=== PATIENT | female | born 1940 | race Hispanic/Latino ===

== ENCOUNTER 2024-03-17 16:10 | Emergency (ER) | payer SELFPAY ==
[2024-03-17 16:17] VITALS: BP 174/73
--- NOTE | 2024-03-17 16:55 | ED.GENMED ---
History of Present Illness
<CHELSEY Plata - Last Filed: 03/17/24 23:18>
General
Chief Complaint: Abdominal Pain
Source: patient
Exam Limitations: none
Time Seen by Provider: 03/17/24 16:51
Nursing documentation reviewed up to this point in time: agreed with
Travel History
Have you had any contact with someone who has COVID-19?: No
Do you have any symptoms of coronavirus? Fever > 100 degrees, chills, cough, shortness of breath, sore throat, loss of taste or smell, muscle aches, or headache?: No
History of Present Illness
History of Present Illness:
83 yr old female brought by daughter for evaluation. Daughter reports patient lives with her and has had intermittent dizziness for months however on Thursday she had an episode that was worse than normal. She has also had some intermittent
abdominal pain since Thursday. She started with gas and reports symptoms have gotten worse since. She denies any fever or chills. Daughter reports she has a history of high cholesterol and very elevated triglycerides in the 500s however that has
not been treated. She only took a statin for 30 days and she has not had medication for this in over a year. Daughter took patient to a new family doctor here in [place] as she lives both in [place] and [place]. The new family doctor
today was concerned about vertigo and possible stroke and also wanted her sent to the ER for pancreatitis workup with elevated triglycerides and abdominal pain. Patient has previous history of appendectomy and cholecystectomy.
Phy Exam
<CHELSEY Plata - Last Filed: 03/17/24 23:18>
General Physical Exam
General Presentation: no apparent distress
General age: appears stated age
General Skin: warm and dry
General Habitus: normal
General Mental: alert
General Hydration: appears well hydrated
Eye Exam
Eye Exam: PERRL and EOMI
Eye Exam General: PERRL: bilateral and EOM intact: bilateral
Pupil Exam: Bilateral: round and reactive
Cardiovascular Exam
Cardiovascular Exam: irregularly irregular
Pulmonary Exam
Pulmonary Exam: lungs clear and no respiratory distress
Gastrointestinal Exam
Gastrointestinal Exam: soft and other (Nonspecific mild tenderness to abdomen )
Neurological Exam
Neurological Exam: alert and oriented x3
[place] Coma Scale
Eye Opening: Spontaneous
Verbal Response: Oriented
Motor Response: Obeys Commands
GCS Total Score: 15
Musculoskeletal Exam
Musculoskeletal Exam: full ROM
Skin Exam
Skin Exam: normal color and warm/dry
Psychiatric Exam
Psychiatric Exam: normal mood/affect
<Alexis Bellamy MD - Last Filed: 03/17/24 21:22>
[place] Coma Scale
GCS Total Score: 15
Course
<CHELSEY Plata - Last Filed: 03/17/24 23:18>
Orders/Labs/Results
Orders:
Orders
03/17/24 17:15
CT Head W/o Iv Contrast Urgent
Comment:
Reason For Exam: vertigo
Urinalysis Reflex To Culture Urgent
Date Specimen was Collected: 03/17/24
Time Specimen was Collected: 22:57
03/17/24 17:17
Iohexol [Omnipaque] See Protocol PO NOW STA
03/17/24 17:32
Electrocardiogram (*1) Stat
Reason for Study: Other
Other Reason for Exam: chest pain
EKG- Treatment ONCE
03/17/24 19:35
Complete Blood Count/With Diff Urgent
Comprehensive Metabolic Panel Urgent
Lipase Urgent
03/17/24 21:28
US Abdomen Complete/Upper Urgent
Comment:
Reason For Exam: abd pain
03/17/24 21:30
Aspirin 325 mg PO NOW STA
Abnormal Lab Results
03/17/24
19:35
Hgb 16.4 H g/dL
(12.0-16.0)
MCH 32.3 H pg
(27.0-31.0)
Creatinine 0.5 L mg/dL
(0.6-1.0)
Glucose 106 H mg/dl
(70-99)
AST 53 H U/L
(14-36)
ALT 56 H U/L
(0-35)
Total Protein 8.6 H g/dl
(6.3-8.2)
03/17/24 19:35
03/17/24 19:35
Vital Signs
Initial and Last Documented VS:
Initial Vital Signs
Temp Pulse Resp BP Pulse Ox
98.2 F 60 16 174/73 99
03/17/24 16:17 03/17/24 16:17 03/17/24 16:17 03/17/24 16:17 03/17/24 16:17
Last Documented Vital Signs
Temp Pulse Resp BP Pulse Ox
98.2 F 60 16 138/66 99
03/17/24 16:17 03/17/24 16:17 03/17/24 16:17 03/17/24 20:55 03/17/24 19:09
Metrology Specialist consulted with Physician
Metrology Specialist consulted with physician?: Yes
Name of Physician Consulted: Mia
<Alexis Bellamy MD - Last Filed: 03/17/24 21:22>
Orders/Labs/Results
Orders:
Orders
03/17/24 17:15
CT Head W/o Iv Contrast Urgent
Comment:
Reason For Exam: vertigo
Urinalysis Reflex To Culture Urgent
Date Specimen was Collected: 03/17/24
Time Specimen was Collected: 22:57
03/17/24 17:17
Iohexol [Omnipaque] See Protocol PO NOW STA
03/17/24 17:32
Electrocardiogram (*1) Stat
Reason for Study: Other
Other Reason for Exam: chest pain
EKG- Treatment ONCE
03/17/24 19:35
Complete Blood Count/With Diff Urgent
Comprehensive Metabolic Panel Urgent
Lipase Urgent
03/17/24 21:28
US Abdomen Complete/Upper Urgent
Comment:
Reason For Exam: abd pain
03/17/24 21:30
Aspirin 325 mg PO NOW STA
Abnormal Lab Results
03/17/24
19:35
Hgb 16.4 H g/dL
(12.0-16.0)
MCH 32.3 H pg
(27.0-31.0)
Creatinine 0.5 L mg/dL
(0.6-1.0)
Glucose 106 H mg/dl
(70-99)
AST 53 H U/L
(14-36)
ALT 56 H U/L
(0-35)
Total Protein 8.6 H g/dl
(6.3-8.2)
03/17/24 19:35
03/17/24 19:35
Vital Signs
Initial and Last Documented VS:
Initial Vital Signs
Temp Pulse Resp BP Pulse Ox
98.2 F 60 16 174/73 99
03/17/24 16:17 03/17/24 16:17 03/17/24 16:17 03/17/24 16:17 03/17/24 16:17
Last Documented Vital Signs
Temp Pulse Resp BP Pulse Ox
98.2 F 60 16 138/66 99
03/17/24 16:17 03/17/24 16:17 03/17/24 16:17 03/17/24 20:55 03/17/24 19:09
<CHELSEY Plata - Last Filed: 03/17/24 23:18>
MDM/Problems Addressed
Differential Diagnosis Includes:
not limited to: CVA , vertigo,
MDM/Problems Addressed:
Patient is an 83-year-old female with a history of A-fib on Eliquis who was seen by new family provider today and sent to the ER for evaluation. She presented for an episode of severe dizziness on Thursday and has had some abdominal discomfort since.
Her family provider saw for the first time today and was concerned for possible stroke and also possible pancreatitis as patient has history of elevated triglycerides not treated.
Patient presents here no acute distress she is on Eliquis describes vertigo but several days ago but no nystagmus negative [place]-Hallpike. Patient was eval by DR Bellamy, CAT scan negative. pt allergic to ASA . but will adm for cva work up . Pt
in addition with non specific abd pain, allergic to contrast. will check US however nm llipase, nml wbc .
2300: Regarding patient's dizziness with no nystagmus negative [place]-Hallpike and high risk of stroke with elevated untreated high cholesterol was recommended to patient by attending and myself admission for stroke workup however patient declined.
Attempted multiple times to reiterate the importance of the seriousness of this however patient remains wanting to sign out against medical vice. I did however do an ultrasound showed mild increased hepatic parenchymal coarsening with nonspecific
and this will need future workup. I spoke with daughter regarding the importance of close outpatient follow-up family doctor for further workup for dizziness, outpatient neurology follow-up and for patient to take her cholesterol medicine as
recommended. In addition she will need outpatient GI follow-up
<CHELSEY Plata - Last Filed: 03/17/24 23:18>
*Critical Care Note
Total Time (30-74mins, 75-104mins- exclusive of procedures): Not Applicable
ED Attending Note
<CHELSEY Plata - Last Filed: 03/17/24 23:18>
-
Portions of this chart may have been created with voice recognition software.� Occasional wrong word or��sound alike� substitutions may have occurred due to the inherent limitations of voice recognition software.
<Alexis Bellamy MD - Last Filed: 03/17/24 21:22>
ED Attending Note
Patient seen and examined by attending physician: Yes
ED Attending Note:
I have seen and evaluated the patient with a [id number]-mc-zucb encounter. I have spoken to the advance practicer provider and involved in the medical history, the physical exam, medical decision making.
Evaluation and management service: agree unless noted differently below.
Results interpretation: agree unless noted differently below.
Focused HPI: 83-year-old female with history as documented notable for A-fib on Eliquis and hypertension who presents to the emergency room with her daughter for evaluation of dizziness. Triage note mentions abdominal pain but this is actually not
patient's primary complaint�patient apparently had an episode of 'gas' on Thursday evening that lasted for short period and did not return. Her primary reason for being here in the emergency room is because her primary provider referred her to rule
out a stroke due to consistent dizziness for the past few days. Patient typically lives in [place] but comes to this area for about 3 months of the year to stay with her daughter. They scheduled an appointment today to see a primary provider in
this area so that she could have someone to see if she is ill while she is staying in the region. They mention that the appointment today that the patient has been dizzy for the past 4 days or so. Patient apparently woke up Thursday morning with
severe rooms. Apparently was so severe that she was reticent to walk around. Thursday and Thursday symptoms seem to improved but were still present, today symptoms were greatly improved to the point that she could even walk down the stairs
unassisted but she still has some slight residual dizziness. They went to her appointment today and apparently there there were concerning signs on exam for stroke and they were told that they should go to the emergency room. Patient has not had
any nausea or vomiting. She has not had any URI symptoms. She denies any headache or neck pain. She denies any focal weakness, numbness, tingling in her extremities. She denies any speech changes. No facial drooping. Denies any other
complaints.
Physical exam: Awake alert, anxious but not in distress. Hypertensive but otherwise normal vitals. She has no cardiac rubs gallops or murmurs, normal rate but irregular rhythm on cardiac auscultation. Her lungs are clear to auscultation
bilaterally. Her abdomen is soft and nontender to deep palpation. Extraocular movements are intact without nystagmus. She has a negative [place]-Hallpike. Her pupils are equal round and reactive to light bilaterally. She has no cranial nerve
deficits. She has no limb ataxia. Motor and sensory function is intact and symmetric upper and lower extremities.
Medical Decision Makin-year-old female presents for evaluation of dizziness for the past few days which is generally improving. Sent into the emergency room by primary to be evaluated for stroke�there was concern because she has a negative
Alysha-Hallpike and no reproducible nystagmus, consistent dizziness and a history of A-fib with other stroke risk factors. Vitals and exam as above. IV placed labs sent off including CBC and CMP. Will send for CT head. Check an EKG. Will monitor
closely reassess after the above.
Labs reviewed: CBC unremarkable, CMP shows marginal elevation of LFTs unlikely of clinical significance to her presenting complaint today. CT head showed no acute pathology. EKG shows A-fib with normal rate. Had a long discussion with the patient
and the daughter. Concerned with lack of reproducible nystagmus and negative [place]-Hallpike that this could be central vertigo, will admit for neurology consultation and consideration of MRI. Patient is agreeable. She says that while she is
admitted she is hoping to get an abdominal ultrasound because she has been having occasional postprandial abdominal pains although again she has no abdominal pain at present. She is already status post appendectomy and cholecystectomy and has no
abdominal tenderness at present but she did have abnormal LFTs�will send for an upper abdominal ultrasound as well.
Discharge Plan
Departure
Patient Disposition: Against Medical Advice
Date of Disposition: 03/17/24
Time of Disposition: 23:10
Patient with high blood pressure during this ER visit?: Yes
Condition: Fair
Covid-19: Not Applicable
Discharge Problem:
Dizziness, Abdominal pain
Instructions: Dizziness, Abdominal Pain
Referrals:
Ambrosio Kurtz MD [Active] -
James Guidry MD [Active] -
UNKNOWN - PT DOES,NOT KNOW [Family Provider] -
Activity Restrictions/Additional Instructions:
As discussed you are recommended to be admitted to the hospital for further evaluation of dizziness for a stroke workup along with abdominal pain but you declined.
Follow-up closely with your family doctor for further reevaluation of these medical conditions. You are also given information for follow-up with GI for further findings on your ultrasound as well as for neurology. Return if any worsening of
symptoms.
Please continue to take all of your medications including your cholesterol medication.
Interventions
Interventions:
*Risk Screen - Suicide Last Done: 03/17/24 18:12
*General Assessment Last Done: 03/17/24 18:12
*Neglect/Abuse Screening Last Done: 03/17/24 18:12
ED- Fall Risk Assessment Last Done: 03/17/24 18:12
*ED COVID-19 Vaccine History Last Done: 03/17/24 18:12
YS-Ammqhg-[id number] Assessment Last Done: 03/17/24 18:12
Discharge Date and Time
Print Language: WOLOF
[2024-03-17 18:12] VITALS: BMI 23.6
[2024-03-17 18:17] VITALS: BP 154/66
[2024-03-17 19:54] LABS: % Basophils 0.5 % (0-2); % Eosinophils 0.5 % (0-6); % Immature Granulocytes 0.5 % (0-0.5); % Lymphocytes 33.3 % (20.5-51.1); % Monocytes 7.1 % (1.7-9.3); % Neutrophils 58.1 % (42.2-75.2); Absolute Lymphocytes 1.9 10^3/uL (1.2-3.4); Absolute Monocytes 0.4 10^3/uL (0.1-0.6); Absolute Neutrophils 3.3 10^3/uL (1.4-6.5); Hemoglobin 16.4 g/dL (12.0-16.0); Mean Corp Hgb Conc. 35.7 g/dL (33.0-37.0); Mean Corpuscular Hgb 32.3 pg (27.0-31.0); Mean Corpuscular Volume 90.7 fL (81.0-99.0); Mean Platelet Volume 10.4 fL (7.4-10.4); Nucleated Red Blood Cells % 0 %; Platelet Count 241 10^3/uL (130-400); Red Blood Cell Count 5.07 10^6/uL (4.20-5.40); Red Cell Dist. Width 13.2 % (11.5-14.5); White Blood Cell Count 5.8 10^3/uL (4.8-10.8)
[2024-03-17 20:07] LABS: ALT (SGPT) 56 U/L (0-35); AST (SGOT) 53 U/L (14-36); Albumin 4.9 g/dl (3.5-5.0); Alkaline Phosphatase 54 U/L (38-126); Blood Urea Nitrogen 12 mg/dl (7-17); Calcium 10.2 mg/dl (8.4-10.2); Carbon Dioxide 23 mmol/L (22-30); Estimated Creatinine Clearance 59 ml/min; Glucose 106 mg/dl (70-99); Lipase 199 U/L (23-300); Total Bilirubin 0.7 mg/dl (0.2-1.3); Total Protein 8.6 g/dl (6.3-8.2); eGFR > 60.00
[2024-03-17 20:21] LABS: Chloride 105 mmol/L (98-107); Potassium 4.5 mmol/L (3.5-5.1); Sodium 138 mmol/L (135-145)
[2024-03-17 20:55] VITALS: BP 138/66
--- NOTE | 2024-03-17 22:03 | EDRN ---
RN to bedside, spoke at length w/ pt. and family about risks of leaving against medical advice. Pt. is alert and oriented x 4, still does not wish to stay in hospital. Provider aware.
[2024-03-17 23:26] VITALS: BP 140/70
[2024-03-17 23:36] LABS: Urine Albumin Negative (Neg - Trace); Urine Bilirubin Negative (Negative); Urine Character Clear (Clear); Urine Color Yellow; Urine Glucose Negative (Negative); Urine Ketone Trace (Negative); Urine Leukocyte Negative (Negative); Urine Nitrite Negative (Negative); Urine Occult Blood Negative (Negative); Urine Specific Gravity 1.015 (<1.030); Urine Urobilinogen Negative (Neg - 1+)
== END 2024-03-17 23:38 | disposition left against medical advice (07) ==
LOC: EMR 16:10
PROVIDERS: Nurse Practitioner; EMERGENCY PHYSICIAN Emergency Medicine
DX: R42 Dizziness and giddiness (principal); R10.9 Unspecified abdominal pain; Z53.29 Procedure and treatment not carried out because of patient's decision for other reasons; I48.91 Unspecified atrial fibrillation; E78.2 Mixed hyperlipidemia; I10 Essential (primary) hypertension; Z79.01 Long term (current) use of anticoagulants; Z90.49 Acquired absence of other specified parts of digestive tract; Z88.6 Allergy status to analgesic agent; Z88.8 Allergy status to other drugs, medicaments and biological substances; Z91.041 Radiographic dye allergy status
CPT/HCPCS: 99284; 70450; 76700; 80053; 81003; 83690; 85025; 93005

== ENCOUNTER 2024-03-18 12:00 | Emergency (ER) | payer MEDICARE, SELFPAY ==
[2024-03-18 12:02] VITALS: BP 144/75
--- NOTE | 2024-03-18 14:24 | ED.GENMED ---
History of Present Illness
General
Chief Complaint: Dizziness
Source: patient, records and family
Time Seen by Provider: 03/18/24 13:42
Travel History
Have you had any contact with someone who has COVID-19?: No
Do you have any symptoms of coronavirus? Fever > 100 degrees, chills, cough, shortness of breath, sore throat, loss of taste or smell, muscle aches, or headache?: No
History of Present Illness
History of Present Illness:
83-year-old female with past medical history of atrial fibrillation, hypertension, hypercholesterolemia presenting to the emergency department after being evaluated here yesterday for vertigo, patient signed out AGAINST MEDICAL ADVICE as she did not
want to be admitted for MRI, returning to the ER today stating that she is ready to get her MRI. Patient still notes vertigo persisting and notes that the vertigo is usually worse with any movement or while ambulating seems to be improved at rest.
She denies any other symptoms including headache, visual disturbances, weakness or numbness, chest pain, shortness of breath, palpitations or any other concerns. Patient takes Eliquis daily due to her history of atrial fibrillation. Patient's
vertigo started on Thursday around 3:00 after eating lunch and has been persistent since. No history of similar. Went to primary provider on who had notified the ER that patient had a negative [place]-Hallpike maneuver in the office and that
patient's recent triglyceride panel was greater than 500. Patient was not given any medications for her vertigo yesterday or anything today.
Past History
Past History
ED Past Medical History: Arrthythmia, HTN and Hypercholesterolemia
ED Past Surgical History: Cholecystectomy and
Social History
Tobacco: Non-smoker
Alcohol: None
Drug: None
Living: with family
Review of Systems
Review of Systems
All Other Systems: ROS reviewed and negative except as documented in HPI and ROS
Phy Exam
Physical Exam
Physical Exam:
GENERAL: Alert , in no apparent distress
EYE: conjunctiva clear, pupils 3 mm bilateral, EOMI, no nystagmus
NECK: Supple
ENT: o/p clr, mmm.
CARDIAC: rate controlled A-fib, no murmur
LUNGS: Clear breath sounds bilaterally, no acute respiratory distress, no wheezes/rales/rhonchi
NEUROLOGICAL: Alert and oriented
SKIN: Warm and dry, skin intact.
MUSCULOSKELETAL: well perfused.
PSYCH: Normal and appropriate interaction.
Scores
Heart Failure Risk
Heart Failure Risk Score: Not Applicable
Heart Score for Chest Pain Patients
STEMI patient?: Not applicable
Withdrawal Assessment of Alcohol
Withdrawal Assessment Completed?: Not applicable
Course
Orders/Labs/Results
Orders:
Orders
03/18/24 13:43
Electrocardiogram (*1) Urgent
Reason for Study: TIA/Stroke
03/18/24 14:09
Meclizine [Antivert] 25 mg PO NOW STA
Physical Therapy Consult [Pt Eval And Treat] Urgent
Treatment: vertigo
Activity Level: Ambulate
03/18/24 13:43
03/18/24 13:43
Vital Signs
Initial and Last Documented VS:
Initial Vital Signs
Temp Pulse Resp BP Pulse Ox
98.7 F 66 18 144/75 99
03/18/24 12:02 03/18/24 12:02 03/18/24 12:02 03/18/24 12:02 03/18/24 12:02
Last Documented Vital Signs
Temp Pulse Resp BP Pulse Ox
98.7 F 65 18 111/53 99
03/18/24 12:02 03/18/24 15:23 03/18/24 12:02 03/18/24 15:23 03/18/24 15:23
MDM/Problems Addressed
Differential Diagnosis Includes:
BPPV, labyrinthitis, CVA
MDM/Problems Addressed:
83-year-old female presenting back to the emergency department after leaving AGAINST MEDICAL ADVICE yesterday evening for evaluation of persistent vertigo. Symptoms still present. Vertigo is relieved when sitting still but exacerbated with any
movement. Symptoms seem to be most suggestive of a peripheral source however patient does have significant risk factors for central etiology. Offered to admit patient to obtain MRI however patient is still refusing admission. Unable to obtain the
MRI through the emergency department. Will trial some Antivert and physical therapy const for vestibular therapy in the meantime.
Chronic conditions affecting care: Arrhythmia
*Pulse Oximetry
Patient hypoxic: no
*Articulation Officer Interpretation
Rate: normal
Rhythm: a-fib
*Critical Care Note
Total Time (30-74mins, 75-104mins- exclusive of procedures): Not Applicable
Data Reviewed
Review of Other/Old Records Reveals: Records
Source: patient, records and family
Patient Management
Discussion with other providers: PCP
Escalation/DeEscalation of care consider admission/obs:
Patient was seen by physical therapy who did not feel patient's symptoms were vertiginous in nature but possibly due to some deconditioning and may be orthostasis. Will trial some Antivert at home given possibility still exists of positional
vertigo. I notified patient's primary care provider about her workup in the ER yesterday, leaving AMA and then presenting back to the emergency department. Primary care provider ordered patient an MRI and they can contact outpatient radiology to
schedule the MRI. Primary care will ensure this gets done in a timely matter. Patient and family are happy and agreeable with this plan. Aware of return precautions. Stable for discharge home.
ED Attending Note
-
Portions of this chart may have been created with voice recognition software.� Occasional wrong word or��sound alike� substitutions may have occurred due to the inherent limitations of voice recognition software.
Discharge Plan
Departure
Patient Disposition: Home (Routine Discharge)
Date of Disposition: 03/18/24
Time of Disposition: 15:09
Patient with high blood pressure during this ER visit?: Yes
Discharge Problem:
Dizziness
Instructions: Dizziness, Nonvertigo, (DC)
Prescriptions:
New
meclizine 25 mg tablet
25 mg PO BID PRN (Reason: dizziness) Qty: 8 0RF
Referrals:
Gatito Rachel CRNP [Family Provider] -
Interventions
Interventions:
*Risk Screen - Suicide Last Done: 03/18/24 12:05
*General Assessment Last Done: 03/18/24 12:05
*Neglect/Abuse Screening Last Done: 03/18/24 12:05
ED- Neurological Assessment Last Done: 03/18/24 13:24
Discharge Date and Time
Print Language: ALBANIAN
[2024-03-18] MEDS: ANTIVERT 25 MG PO (14:32)
[2024-03-18 15:23] VITALS: BP 111/53
== END 2024-03-18 15:49 | disposition home or self-care (01) ==
LOC: EMR 12:00
PROVIDERS: EMERGENCY PHYSICIAN Emergency Medicine; FAMILY PHYSICIAN Nurse Practitioner Family
DX: R42 Dizziness and giddiness (principal); I48.91 Unspecified atrial fibrillation; I10 Essential (primary) hypertension; E78.00 Pure hypercholesterolemia, unspecified; Z90.49 Acquired absence of other specified parts of digestive tract
CPT/HCPCS: 99282